=== PATIENT | male | born 1950 | race Caucasian/White ===

== ENCOUNTER 2021-03-30 16:28 | Inpatient (IN) ==
--- NOTE | 2021-03-30 16:25 | Emergency Department Note ---
History of Present Illness General Chief complaint: Stroke Alert Stated complaint: STROKE ALERT Source: EMS Mode of arrival: EMS Limitations: other (History of dementia) History of Present Illness Provider Complaint: + generalized weakness (Reportedly had right-sided weakness and facial droop) Onset (ago): unknown (This was noticed around 3:30 PM) Duration: + improved Location: + RUE, + RLE and + face Migration: + none Severity: moderate Relieved By: + none Exacerbated By: + none Context: no recent illness, no recent surgery or no trauma/injury History is limited given the patient's history of dementia. The patient was patient out as a code stroke as the patient had new onset of right-sided weakness. The patient does have a known history of dysarthria. No history of any falls or trauma. Patient does not complain of any pain into the head neck chest back abdomen pelvis or extremities. Home Medications Medication Instructions Recorded Confirmed Type Saccharomyces boulardii 250 mg 250 mg PO DAILY 11/17/20 03/30/21 History capsule (Florastor) acetaminophen 325 mg tablet 650 mg PO Q6 PRN 11/17/20 03/30/21 History aspirin 81 mg tablet,delayed 81 mg PO DAILY 11/17/20 03/30/21 History release (Aspirin Low Dose) atorvastatin 20 mg tablet 20 mg PO DAILY 11/17/20 03/30/21 History donepezil 10 mg tablet 20 mg PO HS 11/17/20 03/30/21 History losartan 25 mg tablet 25 mg PO DAILY 11/17/20 03/30/21 History memantine 5 mg tablet 5 mg PO DAILY 11/17/20 03/30/21 History omega-3 acid ethyl esters 1 gram 1 cap PO DAILY 11/17/20 03/30/21 History capsule (Lovaza) scopolamine base 1 mg over 3 days 1 patch TRANSDERMAL Q72H 11/17/20 03/30/21 History transdermal patch (Transderm-Scop 1.5 mg transdermal patch () tolterodine 4 mg capsule,extended 4 mg PO DAILY 11/17/20 03/30/21 History release 24 hr Allergies Allergy/AdvReac Type Severity Reaction Status Date / Time No Known Allergies Allergy Verified 03/30/21 17:00 Past Med/Surg History Medical History (Updated 03/30/21 @ 22:23 by Flako Walls MD) Dementia History of CVA (cerebrovascular accident) HLD (hyperlipidemia) HTN (hypertension) Surgical History No pertinent past surgical history Family History Other Hypertension Social History Smoking Status: Never smoker Preferred Language: Azerbaijani Current Living Situation: Personal Care Facility Feels Safe at Home: Yes Review of Systems Unobtainable due to cognitive status Physical Exam Vital Signs Vital Signs - 24 hr 03/30/21 16:28 03/30/21 16:48 03/30/21 17:05 Temperature 36.7 C Temperature Source Oral Pulse Rate 49 L 52 L 49 L Pulse Rate from SpO2 Sensor 50 L Respiratory Rate 15 15 16 Respiratory Effort / Characteristics Non-Labored Respiratory Depth Normal Blood Pressure 139/79 145/75 H 139/79 Blood Pressure Mean 99 98 99 Blood Pressure Position Semi-fowlers Pulse Oximetry 95 99 Oxygen Delivery Method Room Air Sepsis Recent Fever Within 48 Hours No Sepsis New/Unexplained Change in Mental Status No Sepsis Action Taken by Nursing No Action Required 03/30/21 17:33 03/30/21 18:00 03/30/21 18:31 Temperature Temperature Source Pulse Rate 53 L 46 L 51 L Pulse Rate from SpO2 Sensor 45 L 47 L Respiratory Rate 13 16 17 Respiratory Effort / Characteristics Respiratory Depth Blood Pressure 147/82 H 161/72 H Blood Pressure Mean 103 101 Blood Pressure Position Pulse Oximetry 99 100 Oxygen Delivery Method Sepsis Recent Fever Within 48 Hours Sepsis New/Unexplained Change in Mental Status Sepsis Action Taken by Nursing GENERAL: NAD, non-toxic. EYE EXAM: Normal conjunctiva. PERRL, no anisocoria and EOM's grossly intact w/o pain. OROPHARYNX: Moist mucus membranes. Grossly normal dentition. NECK: Supple, no nuchal rigidity, no adenopathy, non-tender. No signs of meningismus. LUNGS: Clear to auscultation. Normal chest wall mechanics. HEART: Bradycardic and regular, no MRG. ABDOMEN: Abdomen soft, non-tender, normo-active bowel sounds, no masses, no rebo und or guarding. BACK: No CVA TTP. SKIN: No rashes and no bruising. UPPER EXTREMITIES: Upper extremities are grossly normal. LOWER EXTREMITIES: Grossly normal, no edema. NEURO EXAM: Awake and alert is able to say his name and follow basic commands, cranial nerves II-XII with exception of maybe slight difficulty with raising the right face with grimace, dysarthria, moves all 4 extremities on command w/o issue. No obvious drift. Course Course Cardiac monitoring: An order was placed for continuous cardiac monitoring. The monitor shows a rate of 55 with sinus bradycardia rhythm. Administered Medications Discontinued Medications Aspirin (Aspirin 300 Mg Supp) 300 mg MT ONE ONE Stop: 03/30/21 20:03 Last Admin: 03/30/21 21:03 Dose: 300 mg Documented by: [id number] Medical Decision Making Differential Diagnosis Infection, dehydration, metabolic abnormality, hypo/hyperglycemia, electrolyte disturbance, anemia, hypoxia, cardiac sources, intracerebral event, toxicologic, neurologic, as well as other pathologies. Medical Records Attestation: I reviewed the patient's medical records. Home Medications Current Medication List: was personally reviewed by me Laboratory Data Attestation: I reviewed the patient's lab results. Result diagrams: 03/30/21 16:56 03/30/21 16:56 Lab Results 03/30/21 03/30/21 03/30/21 Range/Units 16:47 16:56 16:56 WBC 6.83 (4.8-10.8) K/uL RBC 3.78 L (4.7-6.1) M/uL Hgb 12.3 L (14.0-18.0) g/dL Hct 37.0 L (42-52) % MCV 97.9 (80-100) fL MCH 32.5 (25-34) pg MCHC 33.2 (32-36) g/dL RDW Std Deviation 50.8 H (36.4-46.3) fL RDW Coeff of Darling 14.1 (11.5-14.5) % Plt Count 171 (130-400) K/uL MPV 10.0 (7.4-10.4) fL Immature Gran % (Auto) 0.1 % Neut % (Auto) 58.2 % Lymph % (Auto) 30.3 % [place] % (Auto) 8.8 % Eos % (Auto) 2.3 % Baso % (Auto) 0.3 % Neut # (Auto) 3.97 (1.4-6.5) K/uL Lymph # (Auto) 2.07 (1.2-3.4) K/uL [place] # (Auto) 0.60 H (0.11-0.59) K/uL Eos # (Auto) 0.16 (0-0.5) K/uL Baso # (Auto) 0.02 (0-0.2) K/uL Immature Gran # (Auto) 0.01 (0.00-0.02) K/uL PT 11.6 (9.0-12.0) Seconds INR 1.2 H (0.9-1.1) APTT 25.4 (21.0-31.0) Seconds PTT Ratio 1.0 Sodium (136-145) mmol/L Potassium (3.5-5.1) mmol/L Chloride (98-107) mmol/L Carbon Dioxide (21-32) mmol/L Anion Gap (3-11) BUN (7-18) mg/dl Creatinine (0.6-1.4) mg/dl Est Cr Clr Drug Dosing ml/min Est GFR ( Amer) ml/min Est GFR (Non-Af Amer) ml/min BUN/Creatinine Ratio (10-20) Glucose (70-99) mg/dl POC Glucose 71 (70-99) mg/dl Calcium (8.5-10.1) mg/dl Magnesium (1.8-2.4) mg/dl Total Bilirubin (0.2-1) mg/dl AST (15-37) U/L ALT (12-78) U/L Alkaline Phosphatase (45-117) U/L Troponin I (0-0.045) ng/ml Total Protein (6.4-8.2) gm/dl Albumin (3.4-5.0) gm/dl Globulin (2.5-4.0) gm/dl Albumin/Globulin Ratio (0.9-2) COVID-19 Eval Order SARS-CoV-2 (PCR) (Negative) 03/30/21 03/30/21 03/30/21 Range/Units 16:56 18:05 18:05 WBC (4.8-10.8) K/uL RBC (4.7-6.1) M/uL Hgb (14.0-18.0) g/dL Hct (42-52) % MCV (80-100) fL MCH (25-34) pg MCHC (32-36) g/dL RDW Std Deviation (36.4-46.3) fL RDW Coeff of Darling (11.5-14.5) % Plt Count (130-400) K/uL MPV (7.4-10.4) fL Immature Gran % (Auto) % Neut % (Auto) % Lymph % (Auto) % [place] % (Auto) % Eos % (Auto) % Baso % (Auto) % Neut # (Auto) (1.4-6.5) K/uL Lymph # (Auto) (1.2-3.4) K/uL [place] # (Auto) (0.11-0.59) K/uL Eos # (Auto) (0-0.5) K/uL Baso # (Auto) (0-0.2) K/uL Immature Gran # (Auto) (0.00-0.02) K/uL PT (9.0-12.0) Seconds INR (0.9-1.1) APTT (21.0-31.0) Seconds PTT Ratio Sodium 142 (136-145) mmol/L Potassium 3.8 (3.5-5.1) mmol/L Chloride 112 H (98-107) mmol/L Carbon Dioxide 28 (21-32) mmol/L Anion Gap 2.0 L (3-11) BUN 17 (7-18) mg/dl Creatinine 0.67 (0.6-1.4) mg/dl Est Cr Clr Drug Dosing 102.1 ml/min Est GFR ( Amer) 114.4 ml/min Est GFR (Non-Af Amer) 98.7 ml/min BUN/Creatinine Ratio 25.7 H (10-20) Glucose 83 (70-99) mg/dl POC Glucose (70-99) mg/dl Calcium 7.7 L (8.5-10.1) mg/dl Magnesium 2.0 (1.8-2.4) mg/dl Total Bilirubin 0.5 (0.2-1) mg/dl AST 6 L (15-37) U/L ALT 16 (12-78) U/L Alkaline Phosphatase 66 (45-117) U/L Troponin I < 0.015 (0-0.045) ng/ml Total Protein 5.7 L (6.4-8.2) gm/dl Albumin 3.0 L (3.4-5.0) gm/dl Globulin 2.7 (2.5-4.0) gm/dl Albumin/Globulin Ratio 1.1 (0.9-2) COVID-19 Eval Order Covid19 at [facility] SARS-CoV-2 (PCR) NEGATIVE (Negative) Imaging Data Radiologist's Impression: Head CT 03/30/21 16:24 CT head/brain wo con CLINICAL HISTORY: Stroke Like Symptoms COMPARISON STUDY: No previous studies for comparison. TECHNIQUE: Axial CT of the brain is performed from the vertex to the skull base. IV contrast was not administered for this examination. A dose lowering technique was utilized adhering to the principles of ALARA. CT DOSE: FINDINGS: No intra or extra-axial mass lesions are visualized. There is no CT evidence of acute cortical infarction. There is no evidence of midline shift. There is no acute hemorrhage. No acute depressed calvarial fractures are visualized. There are patchy white matter hypodensities likely on a small vessel basis. Diffuse atrophic changes of brain parenchyma are seen and associated with ex vacuo dilatation of ventricles. There is no evidence of acute sinusitis IMPRESSION: No acute intracranial hemorrhage, no midline shift or space occupying lesions. No acute depressed skull fractures seen. Chronic small vessel ischemia and atrophic changes of brain parenchyma are seen. ACT 112: Negative or not required by law. The above report was generated using voice recognition software. It may contain grammatical, syntax or spelling errors. Electronically signed by: Charisse Felipe DO 03/30/2021 4:45 PM Head CTA 03/30/21 16:24 CT angio head w con CLINICAL HISTORY: Stroke Like Symptoms TECHNIQUE: CT angiography of the head was performed in a dynamic helical fashion during intravenous administration of 190 cc of Optiray. MIP imaging was performed. A dose lowering technique was utilized adhering to the principles of ALARA. CT DOSE: 1282.32 mGy.cm COMPARISON STUDY: No previous studies for comparison. FINDINGS: There are no lesion suspicious for aneurysm. There are no major intracranial branch occlusions. The dural venous sinuses appear patent. IMPRESSION: Normal study. ACT 112: Negative or not required by law. The above report was generated using voice recognition software. It may contain grammatical, syntax or spelling errors. Electronically signed by: Charisse Felipe DO 03/30/2021 5:08 PM Neck CTA 03/30/21 16:24 CT angio neck with con CLINICAL HISTORY: Stroke Like Symptoms COMPARISON STUDY: No previous studies for comparison. TECHNIQUE: CT angiography was performed from the aortic arch to the skull base. MIP imaging was performed. The patient was scanned in a dynamic helical fashion during intravenous administration of 119 cc of Optiray. A dose lowering technique was utilized adhering to the principles of ALARA. CT DOSE: Technique: CT angiogram of the carotid and vertebral arteries was obtained using intravenous contrast and 3-D reconstruction. NASCET criteria was utilized. Findings: Minimal atherosclerotic involvement of the proximal aspect of the left vertebral artery. The right carotid revealed no evidence of aneurysm and no evidence of dissection. There is no evidence of hemodynamic significant stenosis. The left carotid revealed no evidence of hemodynamic significant stenosis. There is no evidence of aneurysm. There is no evidence of dissection. There is no evidence of hemodynamically significant vertebral stenosis. There is no evidence of vertebral dissection. IMPRESSION: No evidence of hemodynamically significant carotid or vertebral artery stenosis. No evidence of dissection. ACT 112: Negative or not required by law. The above report was generated using voice recognition software. It may contain grammatical, syntax or spelling errors. Electronically signed by: Charisse Felipe DO 03/30/2021 5:03 PM ECG Data Attestation: I personally reviewed and interpreted this ECG as follows: Additional Comments: Sinus bradycardia, rate of 48, normal intervals, normal axis, no ST changes or T WI. MDM Narrative Patient was seen due to concern for new right-sided weakness. A code stroke had been initiated from the field and the patient was immediately taken to CT scan and did have CTAs of the head and neck completed. After completing his scans he was assessed at the bedside. Upon presentation the patient may have some very mild difficulty with grimace. Patient no longer has any right-sided weakness in terms of right upper or right lower extremity. Patient does have a known history of dementia but is able to follow basic commands and is able to move all 4 extremities. Does have known dysarthria. Patient did have blood work completed. Patient has a normal white count mild anemia with a hemoglobin of 12. Kidney function is grossly unremarkable with mild prerenal azotemia and hypocalcemia. EKG with no obvious arrhythmia although bradycardic. Patient CT head and CT angiography of the head and neck are unremarkable. Dysphagia screen was ordered. I did speak with the on-call hospitalist Manpreet Del Rosario PA-C and the patient was admitted by Dr. Hameed for possible TIA. Patient was not made a TPA candidate as the patient only had slight difficulty with grimace and with relative resolution of his right-sided weakness. Also was unclear as to the patient's last known well as the patient was noted to have the symptoms around 3:30 PM. Impression & Plan Right sided weakness, Dementia, History of CVA (cerebrovascular accident), HLD (hyperlipidemia), HTN (hypertension) Critical Care Time Critical Care Time: Yes Total Critical Care Time: 42 Critical Care: I have personally spent 42 minutes of critical care time in direct management of this patient. This includes bedside care, interpretation of diagnostic studies, and testing, discussion with consultants, patient, and family members, and other require inpatient management activities. This 42 minutes is in excess of all separately billable procedures. Discharge Plan Visit Data Chief Complaint: Stroke Alert Stated Complaint: STROKE ALERT ED Provider: Flako Walls Discharge Problem: Right sided weakness, Dementia, History of CVA (cerebrovascular accident), HLD (hyperlipidemia), HTN (hypertension) Discharge Instructions Interventions: ED Discharge Assessment Last Done: 03/30/21 22:00
--- NOTE | 2021-03-30 16:46 | CT Scan Report ---
CT head/brain wo con CLINICAL HISTORY: Stroke Like Symptoms COMPARISON STUDY: No previous studies for comparison. TECHNIQUE: Axial CT of the brain is performed from the vertex to the skull base. IV contrast was not administered for this examination. A dose lowering technique was utilized adhering to the principles of ALARA. CT DOSE: FINDINGS: No intra or extra-axial mass lesions are visualized. There is no CT evidence of acute cortical infarc tion. There is no evidence of midline shift. There is no acute hemorrhage. No acute depressed calvar ial fractures are visualized. There are patchy white matter hypodensities likely on a small vessel basis. Diffuse atrophic changes of brain parenchyma are seen and associated with ex vacuo dilatation of vent ricles. There is no evidence of acute sinusitis IMPRESSION: No acute intracranial hemorrhage, no midline shift or space occupying lesions. No acute depressed skull fractures seen. Chronic small vessel ischemia and atrophic changes of brain parenchyma are seen. ACT 112: Negative or not required by law. The above report was generated using voice recognition software. It may contain grammatical, syntax o r spelling errors. Electronically signed by: Charisse Felipe DO 03/30/2021 4:45 PM
--- NOTE | 2021-03-30 17:04 | CT Scan Report ---
CT angio neck with con CLINICAL HISTORY: Stroke Like Symptoms COMPARISON STUDY: No previous studies for comparison. TECHNIQUE: CT angiography was performed from the aortic arch to the skull base. MIP imaging was perfo rmed. The patient was scanned in a dynamic helical fashion during intravenous administration of 119 c c of Optiray. A dose lowering technique was utilized adhering to the principles of ALARA. CT DOSE: Technique: CT angiogram of the carotid and vertebral arteries was obtained using intravenous contrast and 3-D reconstruction. NASCET criteria was utilized. Findings: Minimal atherosclerotic involvement of the proximal aspect of the left vertebral artery. The right carotid revealed no evidence of aneurysm and no evidence of dissection. There is no evidenc e of hemodynamic significant stenosis. The left carotid revealed no evidence of hemodynamic significant stenosis. There is no evidence of an eurysm. There is no evidence of dissection. There is no evidence of hemodynamically significant vertebral stenosis. There is no evidence of verte bral dissection. IMPRESSION: No evidence of hemodynamically significant carotid or vertebral artery stenosis. No evidence of disse ction. ACT 112: Negative or not required by law. The above report was generated using voice recognition software. It may contain grammatical, syntax o r spelling errors. Electronically signed by: Charisse Felipe DO 03/30/2021 5:03 PM
[2021-03-30 17:07] LABS: Basophils # (auto) 0.02 K/uL (0-0.2); Basophils % (auto) 0.3 %; Eosinophils # (auto) 0.16 K/uL (0-0.5); Eosinophils % (auto) 2.3 %; Hemoglobin 12.3 g/dL (14.0-18.0); Immature Granulocytes # (auto) 0.01 K/uL (0.00-0.02); Immature Granulocytes % (auto) 0.1 %; Lymphocytes # (auto) 2.07 K/uL (1.2-3.4); Lymphocytes % (auto) 30.3 %; Mean Corpuscular Hemoglobin 32.5 pg (25-34); Mean Corpuscular Hgb Conc 33.2 g/dL (32-36); Mean Corpuscular Volume 97.9 fL (80-100); Monocytes % (auto) 8.8 %; Neutrophils # (auto) 3.97 K/uL (1.4-6.5); Neutrophils % (auto) 58.2 %; Platelet Count 171 K/uL (130-400); RDW Coefficient of Variation 14.1 % (11.5-14.5); RDW Standard Deviation 50.8 fL (36.4-46.3); Red Blood Count 3.78 M/uL (4.7-6.1); White Blood Count 6.83 K/uL (4.8-10.8)
--- NOTE | 2021-03-30 17:09 | CT Scan Report ---
CT angio head w con CLINICAL HISTORY: Stroke Like Symptoms TECHNIQUE: CT angiography of the head was performed in a dynamic helical fashion during intravenous a dministration of 190 cc of Optiray. MIP imaging was performed. A dose lowering technique was utilized adhering to the principles of ALARA. CT DOSE: 1282.32 mGy.cm COMPARISON STUDY: No previous studies for comparison. FINDINGS: There are no lesion suspicious for aneurysm. There are no major intracranial branch occlusions. The d ural venous sinuses appear patent. IMPRESSION: Normal study. ACT 112: Negative or not required by law. The above report was generated using voice recognition software. It may contain grammatical, syntax o r spelling errors. Electronically signed by: Charisse Felipe DO 03/30/2021 5:08 PM
[2021-03-30 17:22] LABS: INR 1.2 (0.9-1.1); Partial Thromboplastin Time 25.4 Seconds (21.0-31.0); Prothrombin Time 11.6 Seconds (9.0-12.0)
[2021-03-30 17:26] LABS: Alanine Aminotransferase 16 U/L (12-78); Aspartate Aminotransferase 6 U/L (15-37); BUN Creatinine Ratio 25.7 (10-20); Blood Urea Nitrogen 17 mg/dl (7-18); Calcium 7.7 mg/dl (8.5-10.1); Carbon Dioxide 28 mmol/L (21-32); Chloride 112 mmol/L (98-107); Creatinine Clr Calc Pharmacy 102.1 ml/min; Est GFR (African American) 114.4 ml/min; Est GFR (Non-African American) 98.7 ml/min; Glucose 83 mg/dl (70-99); Potassium 3.8 mmol/L (3.5-5.1); Sodium 142 mmol/L (136-145)
[2021-03-30 17:31] LABS: Albumin Globulin Ratio 1.1 (0.9-2); Alkaline Phosphatase 66 U/L (45-117); Bilirubin,Total 0.5 mg/dl (0.2-1); Globulin 2.7 gm/dl (2.5-4.0); Total Protein 5.7 gm/dl (6.4-8.2); Troponin I < 0.015 ng/ml (0-0.045)
[2021-03-30] MEDS ORDERED: POLYETHYLENE (MIRALAX) 17 GM PACK PO PRN (18:33)
[2021-03-30] MEDS ORDERED: ONDANSETRON INJ 2 MG/ML 2 ML VIAL IV PRN (18:33)
--- NOTE | 2021-03-30 18:40 | History & Physical Report ---
Date of Service March 30, 2021 Assessment & Plan (1) Dementia: Plan: Patient is a 70-year-old male with PMH of dementia, history of CVA with residual dysarthria, hypertension hyperlipidemia and other medical problems listed below who presents from [facility] due to strokelike symptoms. Found to have R facial droop and R sided weakness around 3:30pm this afternoon Tpa contraindicated due to unknown onset of symptoms CT head without acute intracranial hemorrhage, no midline shift or space occupying lesions. Chronic small vessel ischemia and atrophic changes of brain CTA head/neck normal studies MRI brain w/wo, echo with bubble study pending Routine neuro consult PT/OT, speech evaluations Dysphagia screen Aspirin given IL (2) History of CVA (cerebrovascular accident): Plan: Chronic dysarthria per sign out from Memory [facility] - attempted to verify with facility and family but unable to reach this evening (3) HTN (hypertension): Plan: Allow for permissive HTN in setting of possible ischemic event Hold losartan (4) HLD (hyperlipidemia): Plan: Continue statin DVT Ppx: SQ heparin Code status: FULL per facility paperwork PCP: Theresa Li [facility] Dispo: Admitted to med tele Will need to try [facility] or son again tomorrow for more info. Patient seen in collaboration with Dr. Hameed. Please see addendum. History of Present Illness Chief Complaint: stroke symptoms Primary Care Provider: [facility] Patient is a 70-year-old male with PMH of dementia, history of CVA with residual dysarthria, hypertension hyperlipidemia and other medical problems listed below who presents from [facility] due to strokelike symptoms. Was noted to have right facial droop and some right-sided weakness around 330 this afternoon. Unknown onset of symptoms. He was brought to ED for further evaluation as a stroke alert. Patient already on baby aspirin and statin. Unable to obtain ROS due to dementia and chronic dysarthria. No family at bedside. Unable to reach memory care facility after hours for further information. Unable to reach son by phone. Patient is oriented to self. Allergies Allergy/AdvReac Type Severity Reaction Status Date / Time No Known Allergies Allergy Verified 03/30/21 17:00 Home Medications Medication Instructions Recorded Confirmed Type Saccharomyces boulardii 250 mg 250 mg PO DAILY 11/17/20 03/30/21 History capsule (Florastor) acetaminophen 325 mg tablet 650 mg PO Q6 PRN 11/17/20 03/30/21 History aspirin 81 mg tablet,delayed 81 mg PO DAILY 11/17/20 03/30/21 History release (Aspirin Low Dose) atorvastatin 20 mg tablet 20 mg PO DAILY 11/17/20 03/30/21 History donepezil 10 mg tablet 20 mg PO HS 11/17/20 03/30/21 History losartan 25 mg tablet 25 mg PO DAILY 11/17/20 03/30/21 History memantine 5 mg tablet 5 mg PO DAILY 11/17/20 03/30/21 History omega-3 acid ethyl esters 1 gram 1 cap PO DAILY 11/17/20 03/30/21 History capsule (Lovaza) scopolamine base 1 mg over 3 days 1 patch TRANSDERMAL Q72H 11/17/20 03/30/21 History transdermal patch (Transderm-Scop 1.5 mg transdermal patch () tolterodine 4 mg capsule,extended 4 mg PO DAILY 11/17/20 03/30/21 History release 24 hr Past Med/Surg History Medical History (Updated 03/30/21 @ 22:23 by Flako Walls MD) Dementia History of CVA (cerebrovascular accident) HLD (hyperlipidemia) HTN (hypertension) Surgical History No pertinent past surgical history Family History Other Hypertension Social History Smoking Status: Unknown if ever smoked Preferred Language: Sinhala Communication Ability: Impaired 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 Current Living Situation: Personal Care Facility Other Information That Helps Us Care for You: No Feels Safe at Home: Yes Safety Concerns: Feels Safe At This Time Assistive Devices: None Review of Systems Review of Systems: Unobtainable due to cognitive status Physical Exam Physical Exam: General Appearance: WD/WN, vitals as above, NAD, sitting up in bed, pleasantly confused but able to follow commands Head: normocephalic, atraumatic Eyes: normal inspection, PERRL, conjunctivae normal, anicteric sclerae ENT: external ear and nose normal, oropharynx normal Neck: normal visual inspection, trachea midline, no thyromegaly Respiratory: normal respiratory effort, lungs clear to auscultation, no wheeze, rales, rhonchi. No accessory muscle use Cardiovascular: bradycardic rate, regular rhythm, no murmur appreciated, normal peripheral pulses, no BLE edema. Vessels: no JVD Chest: normal inspection of chest Abdomen/GI: normal bowel sounds, soft, nontender, no hepatosplenomegaly Extremities/Musculoskeletal: no cyanosis or clubbing, RUE 4+/5, RLE, LUE and LLE 5/5 ALE Neurologic: PERRL, EOMI, accommodation nl, + R facial droop, + dysarthria (chronic), CN's II-XI intact bilaterally and moves all extremities Psychiatric: A+Ox3, euthymic affect Skin: no rashes, normal color, warm/dry Results & Data Results & Data ([facility]) Vital Signs (Past 12 Hours) Vital Signs Temp Pulse Resp BP Pulse Ox 03/30/21 16:28 36.7 C 49 L 15 139/79 95 Laboratory Results Short CBC 03/30/21 Range/Units 16:56 WBC 6.83 (4.8-10.8) K/uL Hgb 12.3 L (14.0-18.0) g/dL Hct 37.0 L (42-52) % Plt Count 171 (130-400) K/uL BMP 03/30/21 16:56 Sodium 142 Potassium 3.8 Chloride 112 H Carbon Dioxide 28 BUN 17 Creatinine 0.67 Glucose 83 Calcium 7.7 L Cardiac Enzymes 03/30/21 Range/Units 16:56 Troponin I < 0.015 (0-0.045) ng/ml Liver Function 03/30/21 Range/Units 16:56 Total Bilirubin 0.5 (0.2-1) mg/dl AST 6 L (15-37) U/L ALT 16 (12-78) U/L Alkaline Phosphatase 66 (45-117) U/L Albumin 3.0 L (3.4-5.0) gm/dl Diagnostic Findings Head CT 03/30/21 16:24 CT head/brain wo con CLINICAL HISTORY: Stroke Like Symptoms COMPARISON STUDY: No previous studies for comparison. TECHNIQUE: Axial CT of the brain is performed from the vertex to the skull base. IV contrast was not administered for this examination. A dose lowering technique was utilized adhering to the principles of ALARA. CT DOSE: FINDINGS: No intra or extra-axial mass lesions are visualized. There is no CT evidence of acute cortical infarction. There is no evidence of midline shift. There is no acute hemorrhage. No acute depressed calvarial fractures are visualized. There are patchy white matter hypodensities likely on a small vessel basis. Diffuse atrophic changes of brain parenchyma are seen and associated with ex vacuo dilatation of ventricles. There is no evidence of acute sinusitis IMPRESSION: No acute intracranial hemorrhage, no midline shift or space occupying lesions. No acute depressed skull fractures seen. Chronic small vessel ischemia and atrophic changes of brain parenchyma are seen. ACT 112: Negative or not required by law. The above report was generated using voice recognition software. It may contain grammatical, syntax or spelling errors. Electronically signed by: Charisse Felipe DO 03/30/2021 4:45 PM Head CTA 03/30/21 16:24 CT angio head w con CLINICAL HISTORY: Stroke Like Symptoms TECHNIQUE: CT angiography of the head was performed in a dynamic helical fashion during intravenous administration of 190 cc of Optiray. MIP imaging was performed. A dose lowering technique was utilized adhering to the principles of ALARA. CT DOSE: 1282.32 mGy.cm COMPARISON STUDY: No previous studies for comparison. FINDINGS: There are no lesion suspicious for aneurysm. There are no major intracranial branch occlusions. The dural venous sinuses appear patent. IMPRESSION: Normal study. ACT 112: Negative or not required by law. The above report was generated using voice recognition software. It may contain grammatical, syntax or spelling errors. Electronically signed by: Cahrisse Felipe DO 03/30/2021 5:08 PM Neck CTA 03/30/21 16:24 CT angio neck with con CLINICAL HISTORY: Stroke Like Symptoms COMPARISON STUDY: No previous studies for comparison. TECHNIQUE: CT angiography was performed from the aortic arch to the skull base. MIP imaging was performed. The patient was scanned in a dynamic helical fashion during intravenous administration of 119 cc of Optiray. A dose lowering technique was utilized adhering to the principles of ALARA. CT DOSE: Technique: CT angiogram of the carotid and vertebral arteries was obtained using intravenous contrast and 3-D reconstruction. NASCET criteria was utilized. Findings: Minimal atherosclerotic involvement of the proximal aspect of the left vertebral artery. The right carotid revealed no evidence of aneurysm and no evidence of dissection. There is no evidence of hemodynamic significant stenosis. The left carotid revealed no evidence of hemodynamic significant stenosis. There is no evidence of aneurysm. There is no evidence of dissection. There is no evidence of hemodynamically significant vertebral stenosis. There is no evidence of vertebral dissection. IMPRESSION: No evidence of hemodynamically significant carotid or vertebral artery stenosis. No evidence of dissection. ACT 112: Negative or not required by law. The above report was generated using voice recognition software. It may contain grammatical, syntax or spelling errors. Electronically signed by: Charisse Felipe DO 03/30/2021 5:03 PM ECG Additional Comments: sinus bradycardia Code Status & VTE Plan VTE Prophylaxis Plan VTE Prophylaxis will be ordered: Yes Supervising Physician Co-Signing Physician Notes Care coordinated with Roxy Del Rosario PA-C. Agree with above note. Patient seen and examined. Please refer to her notes for full details. Vital signs reviewed. Physical exam: General exam: Alert and awake. Not in acute distress. CVS: S1 and S2 heard, regular rate and rhythm, no murmurs. RS: Clear to auscultation, no wheezing or crackles. ABD: Soft, bowel sounds present, nontender, no distention. GENERAL MEDICAL PRACTITIONER: able to tell his name and obey commands dysarthria present able to move and lift his extremities power 4/5 in all extremities EXT: No edema, no erythema. Labs: Reviewed. Assessment and plan: CVA doesnot know exact time of symptom onset seems hx of cva and has baseline dysarthria presented with right sided weakness-seems improving intial workup negtive await MRi speech evaluation neuro consult monitor in med/tele HTN Allow for permissive htn losartan on hold will monitor. Other diagnosis and plan of care as per Roxy Del Rosario PA-C. Wilman seymour MD.
[2021-03-30] MEDS ORDERED: ASPIRIN 300 MG SUPP PR ONE (20:02)
[2021-03-30] MEDS ORDERED: SODIUM CHLORIDE 0.9% 500 ML IV SCH (22:42)
[2021-03-30] MEDS ORDERED: PHARMACIST DISCHARGE MED REC CONSULT PRN (22:42)
[2021-03-31] MEDS: HEPARIN SOD 5,000 UNIT/0.5 ML VIAL SQ SCH ×4 (05:07→21:08)
[2021-03-31 06:04] LABS: Hematocrit (blood only) 41.3 % (42-52); Hemoglobin 13.8 g/dL (14.0-18.0); Mean Corpuscular Hemoglobin 32.3 pg (25-34); Mean Corpuscular Hgb Conc 33.4 g/dL (32-36); Mean Corpuscular Volume 96.7 fL (80-100); Mean Platelet Volume 10.1 fL (7.4-10.4); Platelet Count 166 K/uL (130-400); RDW Coefficient of Variation 13.6 % (11.5-14.5); RDW Standard Deviation 48.5 fL (36.4-46.3); Red Blood Count 4.27 M/uL (4.7-6.1)
[2021-03-31 06:33] LABS: BUN Creatinine Ratio 26.3 (10-20); Calcium 8.4 mg/dl (8.5-10.1); Creatinine Clr Calc Pharmacy 124.4 ml/min; Est GFR (African American) 124.1 ml/min; Est GFR (Non-African American) 107.1 ml/min; Potassium 3.6 mmol/L (3.5-5.1)
[2021-03-31] MEDS: ASPIRIN 81 MG CHEW PO SCH ×2 (07:41→13:25)
[2021-03-31] MEDS: ATORVASTATIN 20 MG TAB PO SCH ×2 (07:41→13:25)
[2021-03-31 07:51] LABS: Estimated Average Glucose 94 mg/dl; Hemoglobin A1C 4.9 % (4.5-5.6)
[2021-03-31] MEDS ORDERED: GADOBUTROL 65ML VIAL IV ONE (10:00)
--- NOTE | 2021-03-31 10:15 | Magnetic Resonance Report ---
MRI OF THE BRAIN WITHOUT AND WITH IV CONTRAST CLINICAL HISTORY: cva? Expressive aphasia. COMPARISON STUDY: Head CT and CTA of the head March 30, 2021. TECHNIQUE: Utilizing a 1.5 Cintia magnet and dedicated coil, multiplanar, multiecho imaging of the br ain was performed pre and postcontrast administration. IV administration of 7 mL of Gadavist contras t was uneventful. FINDINGS: This exam is mildly compromised by artifact although is diagnostic. There are no foci of re stricted diffusion to suggest acute infarct. No acute intracranial hemorrhage, midline shift or mass effect is present. There is no intracranial mass. Note is made of smooth diffuse pachymeningeal dural enhancement. Marked atrophy is noted. This accounts for mild ventricular dilatation. The basal ciste rns are patent. There are no extra axial collections. Flow-voids for the major intracranial vessels a re present. Mild white matter T2 hyperintense foci suggest small vessel disease. IMPRESSION: 1. No acute intracranial findings. Exam mildly compromised by motion artifact. 2. Marked atrophy. 3. Smooth diffuse pachymeningeal dural enhancement, a nonspecific finding. ACT 112: Negative or not required by law. Electronically signed by: Rocco Isaacs M.D. 03/31/2021 10:14 AM
--- NOTE | 2021-03-31 11:18 | Hospitalist Progress Note ---
Date of Service March 31, 2021 Assessment & Plan (1) Stroke-like symptom: (2) Dementia: Plan: 70-year-old male with PMH of dementia, history of CVA with residual dysarthria, hypertension hyperlipidemia and other medical problems listed below who presents from [facility] due to strokelike symptoms. Found to have R facial droop and R sided weakness around 3:30pm this afternoon Tpa contraindicated due to unknown onset of symptoms CT head without acute intracranial hemorrhage, no midline shift or space occupying lesions. Chronic small vessel ischemia and atrophic changes of brain CTA head/neck normal studies MRI brain did not reveal acute findings though exam is reported to be compromised by motion artifact. Will follow-up neuro consult Get PT/OT, speech evaluations Aspirin got MN Called patient's resident Theresa at [place] and spoke with the director Patient was reportedly staring and not responding and was unlike himself Was reported to have new right facial drop and weak grasp on right He usually has cut up food. Usually pockets food on left side and needs cuing when being fed Imaging does not suggest acute infarct. TIA is a possibility (3) History of CVA (cerebrovascular accident): Plan: Chronic dysarthria per sign out from [facility] - attempted to verify with facility and family but unable to reach this evening (4) HTN (hypertension): Plan: Allow for permissive HTN in setting of possible ischemic event Continue to hold losartan (5) HLD (hyperlipidemia): Plan: Continue statin DVT Ppx: SQ heparin Code status: FULL per facility paperwork PCP: [facility] Admission and Anticipated Discharge Date Admission Date: March 30, 2021 Subjective 70-year-old man with history of dementia, CVA with residual dysarthria pretension who was brought in from [facility] for strokelike symptoms. Was reported to have right facial droop and some right-sided weakness. Patient seen and examined this morning. Staff to obtain history from patient due to dysarthria. Was able to say his name and that he was in the hospital. Could not make out most of other things he was saying Review of Systems Review of Systems: Review of systems limited due to dysarthria and dementia Physical Exam Constitutional: + well hydrated; no acute distress Eyes: PERRL, conjunctivae normal, anicteric sclerae ENMT: external ear and nose normal, oropharynx normal Respiratory: normal respiratory effort, lungs clear to auscultation Cardiovascular: Rate/Rhythm: + bradycardic Heart Sounds: normal S1 and normal S2 Extremities: no edema Gastrointestinal (Abdomen): normal bowel sounds, soft, nontender, no hepatosplenomegaly Musculoskeletal: No pedal edema Neurologic: PERRL +dysarthria +Right facial droop Power is equal on both UE/LE Cooperative and follows commands Psychiatric: Orientation: alert Genitourinary: no CVA tenderness Results & Data Results & Data ([facility]) Vital Signs (Past 12 Hours) Vital Signs Temp Pulse Pulse Resp BP Pulse Ox 03/31/21 07:38 41 L 03/31/21 04:34 36.5 C 50 L 12 148/84 H 93 Laboratory Results Abnormal lab results 03/30/21 03/30/21 03/30/21 Range/Units 16:56 16:56 16:56 RBC 3.78 L (4.7-6.1) M/uL Hgb 12.3 L (14.0-18.0) g/dL Hct 37.0 L (42-52) % RDW Std Deviation 50.8 H (36.4-46.3) fL [place] # (Auto) 0.60 H (0.11-0.59) K/uL INR 1.2 H (0.9-1.1) Chloride 112 H (98-107) mmol/L Anion Gap 2.0 L (3-11) Creatinine (0.6-1.4) mg/dl BUN/Creatinine Ratio 25.7 H (10-20) Calcium 7.7 L (8.5-10.1) mg/dl AST 6 L (15-37) U/L Total Protein 5.7 L (6.4-8.2) gm/dl Albumin 3.0 L (3.4-5.0) gm/dl 03/31/21 03/31/21 Range/Units 05:33 05:33 RBC 4.27 L (4.7-6.1) M/uL Hgb 13.8 L (14.0-18.0) g/dL Hct 41.3 L (42-52) % RDW Std Deviation 48.5 H (36.4-46.3) fL [place] # (Auto) (0.11-0.59) K/uL INR (0.9-1.1) Chloride 112 H (98-107) mmol/L Anion Gap (3-11) Creatinine 0.55 L (0.6-1.4) mg/dl BUN/Creatinine Ratio 26.3 H (10-20) Calcium 8.4 L (8.5-10.1) mg/dl AST (15-37) U/L Total Protein (6.4-8.2) gm/dl Albumin (3.4-5.0) gm/dl (1) Dementia Dementia behavioral disturbance: without behavioral disturbance Dementia type: unspecified type Qualified Code(s): F03.90 - Unspecified dementia without behavioral disturbance (2) HLD (hyperlipidemia) Hyperlipidemia type: unspecified Qualified Code(s): E78.5 - Hyperlipidemia, unspecified (3) HTN (hypertension) Hypertension type: unspecified Qualified Code(s): I10 - Essential (primary) hypertension
[2021-03-31] MEDS ORDERED: SODIUM CHLORIDE 0.9% 1000ML 1,000 ML IV SCH (11:30)
--- NOTE | 2021-03-31 12:51 | Neurology Consultation ---
Date of Consultation March 31, 2021 Assessment & Plan (1) Stroke-like symptom: 1. MRI with no stroke 2. TTE- 50-55% no ASD 3. CTA head neck no acute findings or severe stenosis 4. start aspirin 81 mg and plavix 75 mg daily for 21 days then stop aspirin and continue plavix for life 5. will see back in our office in 4-6 weeks Evelyn Martin schedule (2) Dementia: 1. continue Aricept and namenda as directed watch for GI upset and hypotension Supervising Physician Co-Signing Physician Notes I have seen and discussed above patient with Dr Jcarlos Mtz, neurology I attempted to interview and examine this man who unfortunately is severely demented as a probable baseline dysarthria, seems to have a mild facial asymmetry and I would think it is more left than right and has no other obvious motor deficits but is totally unable to give me any meaningful history about what might have happened to precipitate his admission here It is said that he had some transient right facial weakness and I would have to take care of the face value. Imaging studies have shown no evidence for a new cerebrovascular accident, showed remarkably prominent generalized atrophy consistent with his diagnosis of dementia and nonspecific enhancement of the meninges which were not going to evaluate any further and no significant extracranial vascular disease I agree with calling this a TIA for lack of a better explanation and agree with dual antiplatelet therapy for 1 and 1 days and then follow-up in our office at which point perhaps we can have access to his prior outpatient records that hopefully exist at [facility] and to review his diagnosis and perhaps consider further diagnostic studies if we feel they are indicated For now neurology has no further suggestions and suggested lesser medical factors keeping him here in the hospital I would give him home to an environment that is more familiar to him or hopefully is more familiar to this to become agitated and confused and began to demonstrate sundowning behavior Jcarlos Mtz MD History of Present Illness Reason for Consultation: Stroke work up Requesting Physician: Chandrika Mahajan MD Attending Physician: Chandrika Mahajan MD History of Present Illness John is a 70 year old male with PMH of dementia, history of CVA with residual dysarthria, HTN, HLD presents from [facility] on 03/31/2021 due to strokelike symptoms. He had a right facial droop and some right-sided weakness around 330pm. He already on baby aspirin and statin. on presentation he was only oriented to self. Allergies Allergy/AdvReac Type Severity Reaction Status Date / Time No Known Allergies Allergy Verified 03/30/21 17:00 Home Medications Medication Instructions Recorded Confirmed Type Saccharomyces boulardii 250 mg 250 mg PO DAILY 11/17/20 03/30/21 History capsule (Florastor) acetaminophen 325 mg tablet 650 mg PO Q6 PRN 11/17/20 03/30/21 History aspirin 81 mg tablet,delayed 81 mg PO DAILY 11/17/20 03/30/21 History release (Aspirin Low Dose) atorvastatin 20 mg tablet 20 mg PO DAILY 11/17/20 03/30/21 History donepezil 10 mg tablet 20 mg PO HS 11/17/20 03/30/21 History losartan 25 mg tablet 25 mg PO DAILY 11/17/20 03/30/21 History memantine 5 mg tablet 5 mg PO DAILY 11/17/20 03/30/21 History omega-3 acid ethyl esters 1 gram 1 cap PO DAILY 11/17/20 03/30/21 History capsule (Lovaza) scopolamine base 1 mg over 3 days 1 patch TRANSDERMAL Q72H 11/17/20 03/30/21 History transdermal patch (Transderm-Scop 1.5 mg transdermal patch () tolterodine 4 mg capsule,extended 4 mg PO DAILY 11/17/20 03/30/21 History release 24 hr Patient History Medical History (Updated 03/31/21 @ 12:36 by Chandrika Mahajan MD) Dementia History of CVA (cerebrovascular accident) HLD (hyperlipidemia) HTN (hypertension) Surgical History No pertinent past surgical history Family History Other Hypertension Social History Smoking Status: Unknown if ever smoked Preferred Language: French Communication Ability: 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 marital status: Current Living Situation: Personal Care Facility Other Information That Helps Us Care for You: No Feels Safe at Home: Yes Safety Concerns: Feels Safe At This Time Assistive Devices: Walker Review of Systems Review of Systems: All systems reviewed & are unremarkable except as noted in HPI & below Physical Exam Physical Exam: Physical Exam: Constitutional: appearance nourished, healthy and normal Ears, Nose, Mouth and Throat: mucous membranes moist, no injection and skin norm al, eyes normal Cardiovascular: normal S-1 and S-2 and regular rate and rhythm Respiratory: course breath sounds Musculoskeletal: no peripheral edema Skin: no stigmata of neurocutaneous disease noted and normal and intact Eyes: extraocular muscles intact (EOMI) and pupils equal, round and reactive to light (PERRL) NEUROLOGIC EXAMINATION: Mental status: Alert and interactive Oriented to person only but does know he is in [place] Speech fluent with no evidence of aphasia Cranial Nerves no facial asymmetry Reflexes: Deep tendon reflexes were symmetrical and graded 2/5. down going toes Sensory: light cool touch intact Coordination: finger to nose intact Gait/Stance: Posture normal. Gait normal: was not assessed Motor: Negative for pronator drift of out stretched arms with eyes closed. 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 4+/5 bilaterally hip flex 4+/5 Results & Data ([facility]) Vital Signs (Past 12 Hours) Vital Signs Temp Pulse Pulse Resp BP Pulse Ox 03/31/21 07:38 41 L 03/31/21 04:34 36.5 C 50 L 12 148/84 H 93 Laboratory Results Abnormal lab results 03/30/21 03/30/21 03/30/21 Range/Units 16:56 16:56 16:56 RBC 3.78 L (4.7-6.1) M/uL Hgb 12.3 L (14.0-18.0) g/dL Hct 37.0 L (42-52) % RDW Std Deviation 50.8 H (36.4-46.3) fL [place] # (Auto) 0.60 H (0.11-0.59) K/uL INR 1.2 H (0.9-1.1) Chloride 112 H (98-107) mmol/L Anion Gap 2.0 L (3-11) Creatinine (0.6-1.4) mg/dl BUN/Creatinine Ratio 25.7 H (10-20) Calcium 7.7 L (8.5-10.1) mg/dl AST 6 L (15-37) U/L Total Protein 5.7 L (6.4-8.2) gm/dl Albumin 3.0 L (3.4-5.0) gm/dl 03/31/21 03/31/21 Range/Units 05:33 05:33 RBC 4.27 L (4.7-6.1) M/uL Hgb 13.8 L (14.0-18.0) g/dL Hct 41.3 L (42-52) % RDW Std Deviation 48.5 H (36.4-46.3) fL [place] # (Auto) (0.11-0.59) K/uL INR (0.9-1.1) Chloride 112 H (98-107) mmol/L Anion Gap (3-11) Creatinine 0.55 L (0.6-1.4) mg/dl BUN/Creatinine Ratio 26.3 H (10-20) Calcium 8.4 L (8.5-10.1) mg/dl AST (15-37) U/L Total Protein (6.4-8.2) gm/dl Albumin (3.4-5.0) gm/dl Diagnostic Findings MRI brain-. No acute intracranial findings. Exam mildly compromised by motion artifact. Marked atrophy. Smooth diffuse pachymeningeal dural enhancement, a nonspecific finding CTA neck-No evidence of hemodynamically significant carotid or vertebral artery stenosis. No evidence of dissection. He is still confused why he was here. He denies fall CTA head- Normal study. (1) Dementia Dementia behavioral disturbance: without behavioral disturbance Dementia type: unspecified type Qualified Code(s): F03.90 - Unspecified dementia without behavioral disturbance
--- NOTE | 2021-04-01 06:20 | Electrocardiogram Report ---
Test Reason : Blood Pressure : / mmHG Vent. Rate : 048 BPM Atrial Rate : 048 BPM P-R Int : 178 ms QRS Dur : 088 ms QT Int : 446 ms P-R-T Axes : 071 011 029 degrees QTc Int : 398 ms Poor data quality, interpretation may be adversely affected Sinus bradycardia Otherwise normal ECG No previous ECGs available Confirmed by Ferny Barton ([id number]) on 04/01/2021 6:20:04 AM Referred By: [facility] Confirmed By:Ferny Barton
[2021-04-01 06:27] LABS: Hematocrit (blood only) 39.5 % (42-52); Hemoglobin 13.5 g/dL (14.0-18.0); Mean Corpuscular Hemoglobin 32.5 pg (25-34); Mean Corpuscular Hgb Conc 34.2 g/dL (32-36); Mean Platelet Volume 10.2 fL (7.4-10.4); Platelet Count 179 K/uL (130-400); RDW Coefficient of Variation 13.3 % (11.5-14.5); RDW Standard Deviation 46.7 fL (36.4-46.3); Red Blood Count 4.16 M/uL (4.7-6.1); White Blood Count 7.04 K/uL (4.8-10.8)
[2021-04-01] MEDS: HEPARIN SOD 5,000 UNIT/0.5 ML VIAL SQ SCH ×2 (06:33→13:33)
[2021-04-01 07:04] LABS: BUN Creatinine Ratio 36.3 (10-20); Calcium 7.9 mg/dl (8.5-10.1); Creatinine Clr Calc Pharmacy 131.5 ml/min; Est GFR (Non-African American) 109.6 ml/min; Potassium 3.7 mmol/L (3.5-5.1)
[2021-04-01] MEDS: ASPIRIN 81 MG CHEW PO SCH (08:31)
[2021-04-01] MEDS: ATORVASTATIN 20 MG TAB PO SCH (08:31)
[2021-04-01] MEDS ORDERED: CLOPIDOGREL BISULFATE 75 MG TAB PO SCH (09:00)
--- NOTE | 2021-04-01 10:41 | Discharge Summary ---
Date of Service April 01, 2021 Admission HPI Per Admitting Provider Patient is a 70-year-old male with PMH of dementia, history of CVA with residual dysarthria, hypertension hyperlipidemia and other medical problems listed below who presents from [facility] due to strokelike symptoms. Was noted to have right facial droop and some right-sided weakness around 330 this afternoon. Unknown onset of symptoms. He was brought to ED for further evaluation as a stroke alert. Patient already on baby aspirin and statin. Unable to obtain ROS due to dementia and chronic dysarthria. No family at bedside. Unable to reach memory care facility after hours for further in formation. Unable to reach son by phone. Patient is oriented to self. Admission Exam Per Admitting Provider General Appearance: WD/WN, vitals as above, NAD, sitting up in bed, pleasantly confused but able to follow commands Head: normocephalic, atraumatic Eyes: normal inspection, PERRL, conjunctivae normal, anicteric sclerae ENT: external ear and nose normal, oropharynx normal Neck: normal visual inspection, trachea midline, no thyromegaly Respiratory: normal respiratory effort, lungs clear to auscultation, no wheeze, rales, rhonchi. No accessory muscle use Cardiovascular: bradycardic rate, regular rhythm, no murmur appreciated, normal peripheral pulses, no BLE edema. Vessels: no JVD Chest: normal inspection of chest Abdomen/GI: normal bowel sounds, soft, nontender, no hepatosplenomegaly Extremities/Musculoskeletal: no cyanosis or clubbing, RUE 4+/5, RLE, LUE and LLE 5/5 ALE Neurologic: PERRL, EOMI, accommodation nl, + R facial droop, + dysarthria (chronic), CN's II-XI intact bilaterally and moves all extremities Psychiatric: A+Ox3, euthymic affect Skin: no rashes, normal color, warm/dry Principal Diagnosis Strokelike symptoms Possible Transient ischemic attack Discharge Exam Constitutional + well hydrated; no acute distress Eyes PERRL, conjunctivae normal, anicteric sclerae ENMT external ear and nose normal, oropharynx normal Respiratory normal respiratory effort, lungs clear to auscultation Cardiovascular Rate/Rhythm: + bradycardic Heart Sounds: normal S1 and normal S2 Extremities: no edema Gastrointestinal (Abdomen) normal bowel sounds, soft, nontender, no hepatosplenomegaly Neurologic Alert and oriented to person Follows simple commands Power is about 4/5 in all extremities Psychiatric Orientation: alert Genitourinary no CVA tenderness Discharge Data Allergies Allergy/AdvReac Type Severity Reaction Status Date / Time No Known Allergies Allergy Verified 03/30/21 17:00 Consultations 03/30/21 18:33 ED Decision to Admit Stat 03/30/21 22:42 Consult Neurology Routine Ordered Studies 03/30/21 16:24 CT angio head w con Stat There are no lesion suspicious for aneurysm. There are no major intracranial branch occlusions. The dural venous sinuses appear patent. IMPRESSION: Normal study. CT angio neck with con Stat Minimal atherosclerotic involvement of the proximal aspect of the left vertebral artery. The right carotid revealed no evidence of aneurysm and no evidence of dissection. There is no evidence of hemodynamic significant stenosis. The left carotid revealed no evidence of hemodynamic significant stenosis. There is no evidence of aneurysm. There is no evidence of dissection. There is no evidence of hemodynamically significant vertebral stenosis. There is no evidence of vertebral dissection. IMPRESSION: No evidence of hemodynamically significant carotid or vertebral artery stenosis. No evidence of dissection. CT head/brain wo con Stat No intra or extra-axial mass lesions are visualized. There is no CT evidence of acute cortical infarction. There is no evidence of midline shift. There is no acute hemorrhage. No acute depressed calvarial fractures are visualized. There are patchy white matter hypodensities likely on a small vessel basis. Diffuse atrophic changes of brain parenchyma are seen and associated with ex vacuo dilatation of ventricles. There is no evidence of acute sinusitis IMPRESSION: No acute intracranial hemorrhage, no midline shift or space occupying lesions. No acute depressed skull fractures seen. Chronic small vessel ischemia and atrophic changes of brain parenchyma are seen. 03/31/21 07:57 MR brain wo/w con Urgent This exam is mildly compromised by artifact although is diagnostic. There are no foci of restricted diffusion to suggest acute infarct. No acute intracranial hemorrhage, midline shift or mass effect is present. There is no intracranial mass. Note is made of smooth diffuse pachymeningeal dural enhancement. Marked atrophy is noted. This accounts for mild ventricular dilatation. The basal cisterns are patent. There are no extra axial collections. Flow-voids for the major intracranial vessels are present. Mild white matter T2 hyperintense foci suggest small vessel disease. IMPRESSION: 1. No acute intracranial findings. Exam mildly compromised by motion artifact. 2. Marked atrophy. 3. Smooth diffuse pachymeningeal dural enhancement, a nonspecific finding. Hospital Course (1) Stroke-like symptom: (2) Dementia: 70-year-old male with PMH of dementia, history of CVA with residual dysar thria, hypertension hyperlipidemia and other medical problems listed below who presents from [facility] due to strokelike symptoms. Reported to have R facial droop and R sided weakness around 3:30pm on the day of presentation TPA contraindicated due to unknown onset of symptoms Yesterday I called patient's resident [facility] and spoke with the director Patient was reportedly staring and not responding and was unlike himself Was reported to have new right facial drop and weak grasp on right He usually has cut up food. Usually pockets food on left side and needs cuing when being fed CT head without acute intracranial hemorrhage, no midline shift or space occupying lesions. Chronic small vessel ischemia and atrophic changes of brain CTA head/neck normal studies MRI brain did not reveal acute findings though exam is reported to be compromised by motion artifact. Was evaluated by neurology who recommend aspirin and Plavix for 21 days after which aspirin was stopped and Plavix continued indefinitely for possible TIA. Also to follow-up with neurology outpatient. Was evaluated by PT/OT/speech (3) History of CVA (cerebrovascular accident): Chronic dysarthria per sign out from Memory Care - attempted to verify with facility and family but unable to reach this evening (4) HTN (hypertension): Continue home antihypertensives (5) HLD (hyperlipidemia): Continue statin Total Time Total Time Spent Total Time Spent (In Minutes): 45 Total Time Includes: Examination of the Patient, Discharge Planning and Medication Reconciliation Discharge Plan Discharge Items Patient Disposition: Personal Retirement Reason For Visit: STROKE LIKE SYMPTOMS Discharge Diagnosis: Strokelike symptoms Transient ischemic attack Activity: Resume your previous activity Non-emergency contact: Primary Care Provider and Neurologist Call non-emergency contact if: you have any medication questions and your symptoms worsen Follow-up/Referrals: [facility] [Primary Care Provider] - Diet: Heart Healthy Diet Comment: Aspiration precautions. Cuing and assistance Addtl Attending Provider Instructions: Mr Perdomo. You were brought to the hospital due to concern for worsening right-sided weakness and facial droop. You were evaluated with CT scans and MRI which did not show any obvious new stroke. You were managed for possible transient ischemic attack. You were evaluated by neurology. You are being discharged on aspirin and Plavix for the next 3 weeks, after which you stop the aspirin and continue Plavix indefinitely. It is very important that you follow-up with neurology in the office in 4 to 6 weeks for further evaluation You are being discharged back to [facility]. It was a pleasure taking care of you Pending Studies at Discharge: No Stand-Alone Forms: My [facility] CereScan, Smoking Cessation Skilled Items Patient informed of condition?: Yes DNR: No Discharge Level of Care: Other Communicable Disease: No Discharge Prognosis: Stable Lines: None Urinary Catheter: No Medications and DC Order Prescriptions: New clopidogrel 75 mg Tablet 75 mg PO QAM Qty: 30 RF: 0 Continued atorvastatin 20 mg Tablet 20 mg PO DAILY RF: 0 donepezil 10 mg Tablet 20 mg PO HS RF: 0 losartan 25 mg Tablet 25 mg PO DAILY RF: 0 memantine 5 mg Tablet 5 mg PO DAILY RF: 0 Saccharomyces boulardii [Florastor] 250 mg Capsule 250 mg PO DAILY RF: 0 omega-3 acid ethyl esters [Lovaza] 1 gram Capsule 1 cap PO DAILY RF: 0 acetaminophen 325 mg Tablet 650 mg PO Q6 PRN (Reason: Fever Or Pain) RF: 0 tolterodine 4 mg Capsule,Extended Release 24hr 4 mg PO DAILY RF: 0 scopolamine base [Transderm-Scop] 1 mg over 3 days Patch 3 Day 1 patch TRANSDERMAL Q72H RF: 0 aspirin [Aspirin Low Dose] 81 mg Tablet,Delayed Release (Dr/Ec) 81 mg PO DAILY 21 Days Qty: 21 RF: 0 Discharge Orders: Discharge Order (Routine); Ordered 04/01/21 Ordered By: Chandrika Mahajan Admission Data Admit Date/Time: 03/30/21 18:34 Attending Provider: Chandrika Mahajan I. Admit Provider: Wilman Hameed Primary Care Provider: Theresa yost,[place] Other Providers: Wilman Hameed ; Evelyn Barrios
== END 2021-04-01 16:15 | disposition home or self-care (01) | DRG 69 ==
LOC: ED 16:28 → SUATTDRO 18:34 → 2N 18:34
DX: R40.2412 Glasgow coma scale score 13-15, at arrival to emergency department; I10 Essential (primary) hypertension; Z79.899 Other long term (current) drug therapy; Z82.49 Family history of ischemic heart disease and other diseases of the circulatory system; Z51.81 Encounter for therapeutic drug level monitoring; E78.5 Hyperlipidemia, unspecified; R29.704 NIHSS score 4; F03.90 Unspecified dementia, unspecified severity, without behavioral disturbance, psychotic disturbance, mood disturbance, and anxiety; I69.322 Dysarthria following cerebral infarction; G45.9 Transient cerebral ischemic attack, unspecified; Z79.82 Long term (current) use of aspirin